=== PATIENT | female | born 1990 | race Caucasian/White ===

== ENCOUNTER 2016-12-14 20:01 | Inpatient (IN) | payer BC ==
[~2016-12-14] VITALS: Ht 162.6 cm; Wt 62.1 kg
[~2016-12-14 20:01] MED LIST: EPIPEN0.3 MG/0.3 SUBCUT; PRENATAL PLUS I1 TAB PO
[2016-12-16] MEDS ORDERED: MOTRIN800 MG PO (12:18)
[2016-12-16] MEDS ORDERED: DERMOPLAST PAIN78 GM TOP (12:19)
[2016-12-16] MEDS ORDERED: COLACE100 MG PO (12:21)
[2016-12-16] MEDS ORDERED: LAN-O-SOOTHE7 GM TOP (12:22)
== END 2016-12-16 14:30 | disposition short-term general hospital (02) | DRG 775 ==
LOC: LDROP 20:01 → LDRIP 20:09
PROVIDERS: ADMIT Family Medicine
PROC: 3E0P7GC Introduction of Other Therapeutic Substance into Female Reproductive, Via Natural or Artificial Opening (ICD-10-PCS; principal; 2016-12-15)
PROC: 10E0XZZ Delivery of Products of Conception, External Approach (ICD-10-PCS; principal; 2016-12-15)
DX: O36.5930 Maternal care for other known or suspected poor fetal growth, third trimester, not applicable or unspecified (principal); O41.03X0 Oligohydramnios, third trimester, not applicable or unspecified; Z3A.39 39 weeks gestation of pregnancy; Z37.0 Single live birth
CPT/HCPCS: J2300; J2310; J2370; J2590; J2795; J3010